=== PATIENT | male | born 1955 ===

== ENCOUNTER 2025-03-03 13:12 | Outpatient (RCR) | payer MEDICARE, OTHER, SELFPAY | END 2025-03-03 23:59 | disposition home or self-care (01) | LOC: RPT 13:12 | PROVIDERS: ATTENDING PHYSICIAN Urology; FAMILY PHYSICIAN Family Medicine | DX: C61 Malignant neoplasm of prostate (principal); N39.3 Stress incontinence (female) (male); Z73.6 Limitation of activities due to disability | CPT/HCPCS: 97110; 97112; 97162; 97530 ==

== ENCOUNTER 2025-04-07 14:12 | Outpatient (RCR) | payer MEDICARE, OTHER, SELFPAY | END 2025-04-07 23:59 | disposition home or self-care (01) | LOC: RPT 14:12 | PROVIDERS: ATTENDING PHYSICIAN Urology; FAMILY PHYSICIAN Family Medicine | DX: C61 Malignant neoplasm of prostate (principal); N39.3 Stress incontinence (female) (male); Z73.6 Limitation of activities due to disability; Z90.79 Acquired absence of other genital organ(s) | CPT/HCPCS: 97110; 97112; 97140; 97530 ==